=== PATIENT | female | born 1970 | race Caucasian/White ===

== ENCOUNTER 2016-05-25 10:12 | Emergency (ER) | payer SELFPAY ==
[~2016-05-25] VITALS: Ht 167.6 cm; Wt 64.4 kg
[2016-05-25 10:30] LABS: BASOPHILS % (AUTO) 0.5 % (0.0-2.0); EOSINOPHILS # (AUTO) 0.2 /CMM (0.0-0.7); EOSINOPHILS % (AUTO) 2.8 % (0.0-6.0); HEMATOCRIT 36 % (33-45); HEMOGLOBIN 12.2 g/dL (11.5-14.8); LYMPHOCYTES # (AUTO) 2.8 /CMM (0.8-4.8); LYMPHOCYTES % (AUTO) 41.3 % (20.0-44.0); MEAN CORPUSCULAR HEMOGLOBIN 30 PG (26.0-33.0); MEAN CORPUSCULAR HGB CONC 34 g/dl (31.0-36.0); MEAN CORPUSCULAR VOLUME 87 fL (82-100); MONOCYTES # (AUTO) 0.3 /CMM (0.1-1.30); MONOCYTES % (AUTO) 4.6 % (2.0-12.0); NEUTROPHILS # (AUTO) 3.5 /CMM (1.8-8.9); NEUTROPHILS % (AUTO) 50.8 % (43.0-81.0); PLATELET COUNT (AUTO) 151 /CMM (150-450); RDW COEFFICIENT OF VARIATION 12.4 (11.5-15.0); RED BLOOD CELL COUNT(AUTO) 4.15 MIL/uL (4.0-5.2); WHITE BLOOD COUNT (AUTO) 6.8 K/uL (4.3-11.0)
[2016-05-25 10:44] LABS: CALCIUM, SERUM 8.4 mg/dL (8.5-10.1); CARBON DIOXIDE 26 mmol/L (21-32); CHLORIDE 106 mmol/L (98-107); CREATININE 0.9 mg/dL (0.6-1.3); GFR 67 mL/min (>60); GLUCOSE 79 mg/dL (74-106); SODIUM SERUM 141 mmol/L (136-145); UREA NITROGEN, BLOOD 15 mg/dL (7-18)
[2016-05-25 10:46] LABS: ALCOHOL, BLOOD < 3 mg/dL (0-0)
--- NOTE | 2016-05-25 11:00 | NUR ---
ASSUME PT CARE. BIBRA TO ER BED 11. PER REPORT, PT WAS AT AN STABLISHMENT EXHIBITING PSYCHOSIS AND DELLUSIONAL THOUGHTS. DENIES SI. PT ON MONITOR W/ STABLE VITALS. WILL CONTINUE TO MONITOR.
--- NOTE | 2016-05-25 11:00 | NUR ---
Note bob in EDM - 05/25/16 at 1856 by NIXON PT MARVA TO ER BED 11. WAS NOTED TO HAVE PSYCHOSIS, DELLUSIONAL , STATING SOMEBODY KIDNAPS HER. DENIES SI/HI. PLACED ON MONITOR. STABLE VITALS. AWAITING MD CRUMP.
--- NOTE | 2016-05-25 11:05 | NUR ---
SEEN AND EVALUATED BY DR CHOUDHURY.
--- NOTE | 2016-05-25 11:05 | NUR ---
BRAD RN AT BEDSIDE FOR PSYCH EVAL.
[2016-05-25] MEDS ORDERED: OLANZAPINE 5 MG/TAB.RAPDIS ONE (12:16)
[2016-05-25] MEDS ORDERED: OLANZAPINE 5 MG/TAB.RAPDIS PO ONE (12:30)
[2016-05-25] MEDS ORDERED: HALOPERIDOL LACTATE INJ 5 MG/ML VIAL ONE (15:01)
[2016-05-25] MEDS ORDERED: HALOPERIDOL LACTATE INJ 5 MG/ML VIAL IM ONE (15:30)
[2016-05-25 21:13] LABS: CANNABINOID, URINE NEGATIVE (NEGATIVE); PHENCYCLIDINE SCREEN,URINE NEGATIVE (NEGATIVE)
--- NOTE | 2016-05-26 06:00 | NUR ---
ASSUMED CARE OF PT. BREAKFAST TRAY ORDERED FOR PT. PT IS CALMLY WATCHING TV. NO S/S OF PAIN OR DISTRESS.
--- NOTE | 2016-05-26 07:10 | NUR ---
REPORT GIVEN TO DIETER MCCAIN FOR SIMRAN
--- NOTE | 2016-05-26 07:48 | NUR ---
Patient is resting comfortably in bed. Noted walking around. VSS
--- NOTE | 2016-05-26 08:18 | NUR ---
PATIENT PROVIDED WITH FOOD TRAY
--- NOTE | 2016-05-26 08:21 | NUR ---
CRISTI -- CALLED THE [facility] @ [phone] OFFICER FRANCO IS ON THIS CASE. HE IS UNAVAILABLE BUT THEY WILL CALL US BACK.
--- NOTE | 2016-05-26 08:32 | NUR ---
[facility]. STATES SHE WILL TEXT PTS' PHYSICAL THERAPY ASSISTANT TO INFORM THAT PT IS ON THE WAY
--- NOTE | 2016-05-26 09:31 | NUR ---
PT. VERBALIZED UNDERSTANDING OF AFTERCARE INSTRUCTIONS.Patient discharged to follow up with security officer in stable condition. Written and verbal after care instructions given. Patient verbalizes understanding of instruction. Pt provided with
[2016-05-26 09:39] VITALS: BP 125/72
== END 2016-05-26 09:40 | disposition home or self-care (01) ==
LOC: ER 10:17
DX: R45.851 Suicidal ideations (principal); F23 Brief psychotic disorder; Z59.0 Homelessness
CPT/HCPCS: 36415; 80048-TC; 80305; 85025-TC; A4606; G0480; J1630; Z7610

== ENCOUNTER 2016-10-15 19:20 | Emergency (ER) | payer SELFPAY ==
[~2016-10-15] VITALS: Ht 165.1 cm; Wt 68.0 kg
[2016-10-15 19:32] VITALS: BP 113/65
--- NOTE | 2016-10-15 20:45 | NUR ---
PT RESTING IN ER BED, NAD NOTED, SKIN WARM AND DRY. WILL CONITNUE TO MONITOR
[2016-10-15] MEDS ORDERED: ONDANSETRON 4 MG TAB.RAPDIS SL ONE (21:00)
[2016-10-15] MEDS ORDERED: AZITHROMYCIN 250 MG TABLET PO ONE (21:00)
[2016-10-15] MEDS ORDERED: METRONIDAZOLE 500 MG TABLET PO ONE (21:00)
[2016-10-15] MEDS ORDERED: KETOROLAC TROMETHAMINE INJ 60 MG/2 ML VIAL IM ONE (21:00)
[2016-10-15] MEDS ORDERED: CEFTRIAXONE 500 MG VIAL IM ONE (21:00)
[2016-10-15] MEDS ORDERED: ONDANSETRON 4 MG TAB.RAPDIS ONE (21:06)
[2016-10-15] MEDS ORDERED: METRONIDAZOLE 500 MG TABLET ONE (21:06)
[2016-10-15] MEDS ORDERED: AZITHROMYCIN 250 MG TABLET ONE (21:07)
[2016-10-15] MEDS ORDERED: CEFTRIAXONE 500 MG VIAL ONE (21:07)
[2016-10-15] MEDS ORDERED: KETOROLAC TROMETHAMINE INJ 30 MG/ML VIAL ONE (21:07)
[2016-10-15] MEDS ORDERED: LIDOCAINE /MPF 1% VIAL 5 ML VIAL ONE (21:07)
== END 2016-10-15 21:37 | disposition home or self-care (01) ==
LOC: ER 19:20
DX: Z76.0 Encounter for issue of repeat prescription (principal); G89.29 Other chronic pain
CPT/HCPCS: 96372 ×2; 99284; A4606; J0696; J1885; J3490; Q0162; Z7610